=== PATIENT | male | born 1970 | race Two or more races ===

== ENCOUNTER 2018-01-29 23:56 | Emergency (ER) | payer OTHER ==
[~2018-01-29] VITALS: Ht 182.9 cm; Wt 127.0 kg
[~2018-01-29 23:56] MED LIST: ANTIVERT25 M1 PO; AUGMENTIN 125-150 ML; MUCINEX600 MG; PREVACID30 MG
[2018-01-30] MEDS ORDERED: LOSARTAN-HCTZ1 EACH (00:17)
[2018-01-30] MEDS ORDERED: SYNTHROID75 MCG (00:18)
[2018-01-30] MEDS ORDERED: LIPITOR20 MG (00:19)
== END 2018-01-30 11:56 | disposition home or self-care (01) ==
LOC: ER 23:56
DX: K29.70 Gastritis, unspecified, without bleeding (principal)

== ENCOUNTER 2019-03-03 10:26 | Emergency (ER) | payer OTHER ==
[~2019-03-03] VITALS: Ht 182.9 cm; Wt 117.5 kg
[~2019-03-03 10:26] MED LIST changes: +LIPITOR20 MG; +LOSARTAN-HCTZ1 EACH; +SYNTHROID75 MCG
[2019-03-03] MEDS ORDERED: OMEPRAZOLE40 MG (10:54)
== END 2019-03-03 19:37 | disposition home or self-care (01) ==
LOC: ER 10:26 → CPU-OBS 11:02 → ER 11:02
DX: R07.89 Other chest pain (principal)
CPT/HCPCS: G0378; G0379; 93005

== ENCOUNTER 2019-05-26 11:15 | Outpatient (CLI) | payer OTHER ==
[~2019-05-26 11:15] MED LIST changes: +OMEPRAZOLE40 MG
== END 2019-05-26 11:19 | disposition home or self-care (01) ==
LOC: MRI 11:15
DX: M79.672 Pain in left foot (principal)
CPT/HCPCS: 73720

== ENCOUNTER 2019-06-12 01:42 | Emergency (ER) | payer OTHER ==
[~2019-06-12] VITALS: Ht 182.9 cm; Wt 115.7 kg
== END 2019-06-12 07:35 ==
LOC: ER 01:42 → CPU-OBS 01:43 → ER 07:35
DX: R07.89 Other chest pain (principal)
CPT/HCPCS: 93005; G0378; G0379

== ENCOUNTER 2019-08-20 00:13 | Emergency (ER) | payer OTHER ==
[~2019-08-20] VITALS: Ht 182.9 cm; Wt 113.4 kg
[2019-08-20] MEDS ORDERED: TUSNEL LIQUID178 ML PO (02:20)
[2019-08-20] MEDS ORDERED: OSEL75CA PO (02:20)
[2019-08-20] MEDS ORDERED: DOLOGEN CAPLET1 EACH PO (02:20)
== END 2019-08-20 02:31 | disposition home or self-care (01) ==
LOC: ER 00:13
DX: B33.8 Other specified viral diseases (principal); J11.1 Influenza due to unidentified influenza virus with other respiratory manifestations

== ENCOUNTER 2020-01-19 10:23 | Outpatient (CLI) | payer OTHER ==
[~2020-01-19 10:23] MED LIST changes: +DOLOGEN CAPLET1 EACH PO; +OSEL75CA PO; +TUSNEL LIQUID178 ML PO
== END 2020-01-19 10:30 | disposition home or self-care (01) ==
LOC: TOM 10:23
DX: M95.0 Acquired deformity of nose (principal)

== ENCOUNTER 2020-09-16 04:45 | Emergency (ER) | payer OTHER ==
[~2020-09-16] VITALS: Ht 182.9 cm; Wt 124.7 kg
== END 2020-09-16 11:15 | disposition home or self-care (01) ==
LOC: ER 04:45 → CPU-OBS 04:47 → ER 04:47
DX: R07.89 Other chest pain (principal); R00.2 Palpitations
CPT/HCPCS: G0378; G0379; 93005

== ENCOUNTER 2020-10-02 19:48 | Emergency (ER) | payer OTHER ==
[~2020-10-02] VITALS: Ht 182.9 cm; Wt 124.3 kg
[2020-10-03] MEDS ORDERED: MUCINEX DM ER1 EAC1 PO (00:30)
[2020-10-03] MEDS ORDERED: ZYRTEC10 MG PO (00:30)
== END 2020-10-03 00:52 | disposition home or self-care (01) ==
LOC: ER 19:48
DX: J06.9 Acute upper respiratory infection, unspecified (principal); B34.9 Viral infection, unspecified

== ENCOUNTER → 2020-12-18 | Outpatient (CLI) | payer OTHER ==
[~2020-12-18] MED LIST changes: +MUCINEX DM ER1 EAC1 PO; +ZYRTEC10 MG PO
== END | disposition home or self-care (01) ==
LOC: TOM 12-17 13:15 → EDBD 13:42 → TOM 13:42
DX: J32.4 Chronic pansinusitis (principal)

== ENCOUNTER → 2020-12-31 09:20 | Outpatient (CLI) | payer OTHER | END | disposition home or self-care (01) | LOC: EDBD 09:20 → RAD 09:20 | DX: Z01.811 Encounter for preprocedural respiratory examination (principal) ==

== ENCOUNTER → 2020-12-31 10:24 | Outpatient (CLI) | payer OTHER | END | disposition home or self-care (01) | LOC: EKG 10:24 → EDBD 10:24 | PROVIDERS: ATTEND General Practice | DX: Z01.810 Encounter for preprocedural cardiovascular examination (principal) ==

== ENCOUNTER 2021-02-18 09:08 | Outpatient (CLI) | payer OTHER | END 2021-02-18 09:25 | disposition home or self-care (01) | LOC: SONOGRAMA 09:08 → MAMO-SONO 09:30 | PROVIDERS: ATTEND Internal Medicine Gastroenterology | DX: K76.0 Fatty (change of) liver, not elsewhere classified (principal); R10.13 Epigastric pain ==

== ENCOUNTER → 2021-06-09 | Emergency (ER) | payer OTHER ==
[~2021-06-09] VITALS: Ht 182.9 cm; Wt 127.0 kg
== END | disposition left against medical advice (07) ==
LOC: ER 17:54
DX: Z53.21 Procedure and treatment not carried out due to patient leaving prior to being seen by health care provider (principal)

== ENCOUNTER 2022-02-27 08:21 | Emergency (ER) | payer OTHER ==
[~2022-02-27] VITALS: Ht 182.9 cm; Wt 137.0 kg
== END 2022-02-27 12:58 | disposition home or self-care (01) ==
LOC: ER 08:21
DX: R07.89 Other chest pain (principal); R20.0 Anesthesia of skin; Z20.822 Contact with and (suspected) exposure to COVID-19; I10 Essential (primary) hypertension; E78.00 Pure hypercholesterolemia, unspecified; E78.1 Pure hyperglyceridemia; E03.9 Hypothyroidism, unspecified; E66.09 Other obesity due to excess calories

== ENCOUNTER 2022-10-21 14:37 | Outpatient (CLI) | payer OTHER | END 2022-10-21 14:47 | disposition home or self-care (01) | LOC: RAD 14:37 | PROVIDERS: ATTEND General Practice | DX: R06.00 Dyspnea, unspecified (principal); F17.210 Nicotine dependence, cigarettes, uncomplicated; G47.33 Obstructive sleep apnea (adult) (pediatric); J44.9 Chronic obstructive pulmonary disease, unspecified ==

== ENCOUNTER 2023-01-08 20:19 | Emergency (ER) | payer OTHER ==
[~2023-01-08] VITALS: Ht 182.9 cm; Wt 145.1 kg
== END 2023-01-08 22:01 | disposition home or self-care (01) ==
LOC: ER 20:19
DX: J06.9 Acute upper respiratory infection, unspecified (principal)

== ENCOUNTER 2023-04-24 17:23 | Emergency (ER) | payer OTHER ==
[~2023-04-24] VITALS: Ht 182.9 cm; Wt 140.6 kg
[2023-04-24 21:36] LABS: HEMATOCRIT 44.1 % (39.0-48.0); HEMOGLOBIN 14.4 g/dL (13-16.00); MEAN CELL VOLUME 95.3 fL (80.0-100.00); MEAN CORPUSCULAR HEMOGLOBIN 31.2 pg (27.00-32.0); MEAN CORPUSCULAR HGB CONC 32.7 g/dl (32.0-36.0); PLATELET COUNT 219 K/uL (150-450); RED BLOOD COUNT 4.63 M/uL (4.00-6.00); RED CELL DISTRIBUTION WIDTH 14.2 % (11.5-14.5)
[2023-04-24 21:42] LABS: PH,URINE 5.5 (5.0-8.0); URINE APPEARANCE Clear; URINE BILIRRUBIN Negative (NEGATIVE); URINE BLOOD Negative; URINE COLOR Yellow; URINE GLUCOSE Negative (NEGATIVE); URINE LEUKOCYTE Negative; URINE NITRATE Negative; URINE PROTEIN Negative (NEGATIVE); URINE UROBILINOGEN 0.2 E.U./dl
[2023-04-24 21:46] LABS: URINE EPITHELIAL CELLS 1.8 uL (0.0-38.8)
[2023-04-24 21:51] LABS: URINE BACTERIA 3.7 uL (0.0-1933); URINE WBC 1.2 uL (0.0-23.2)
[2023-04-24 22:02] LABS: ALBUMIN 3.7 gm/dL (3.4-5.0); BILIRUBIN TOTAL 0.33 mg/dL (0.3-1.2); CALCIUM 9.8 mg/dL (8.5-10.1); GFR 78.47; GLOBULINA 4.2 G/DL (2.4-3.5); POTASSIUM 3.91 mEq/L (3.5-5.1); TOTAL PROTEIN 7.9 gm/dL (6.4-8.2)
[2023-04-24] MEDS ORDERED: INTESTINEX680 M1 PO (22:46)
[2023-04-24] MEDS ORDERED: ONDANSETRON HCL4 MG PO (22:46)
== END 2023-04-24 22:59 | disposition home or self-care (01) ==
LOC: ER 17:23
PROVIDERS: Nurse Practitioner Family
DX: R10.31 Right lower quadrant pain (principal); K76.0 Fatty (change of) liver, not elsewhere classified; I10 Essential (primary) hypertension; E03.9 Hypothyroidism, unspecified

== ENCOUNTER 2023-09-22 13:44 | Emergency (ER) | payer OTHER ==
[~2023-09-22] VITALS: Ht 182.9 cm; Wt 145.1 kg
[~2023-09-22 13:44] MED LIST changes: +INTESTINEX680 M1 PO; +ONDANSETRON HCL4 MG PO
[2023-09-22] MEDS ORDERED: SYNTHROID88 MCG PO (14:16)
[2023-09-22] MEDS ORDERED: FAMOTIDINE/PF 20 MG in 0.9 % SODIUM CHLORIDE 8 ML IV PUSH STA (14:39)
[2023-09-22] MEDS ORDERED: ONDANSETRON HCL 2 MG/ML VIAL IV ONE (14:45)
[2023-09-22] MEDS ORDERED: KETOROLAC TROMETHAMINE 30 MG VIAL IV ONE (14:45)
[2023-09-22 14:58] LABS: HEMATOCRIT 39.6 % (39.0-48.0); HEMOGLOBIN 13.3 g/dL (13-16.00); MEAN CORPUSCULAR HEMOGLOBIN 31.3 pg (27.00-32.0); MEAN CORPUSCULAR HGB CONC 33.7 g/dl (32.0-36.0); PLATELET COUNT 225 K/uL (150-450); RED BLOOD COUNT 4.26 M/uL (4.00-6.00); RED CELL DISTRIBUTION WIDTH 15.6 % (11.5-14.5)
[2023-09-22 15:20] LABS: PH,URINE 7.5 (5.0-8.0); URINE APPEARANCE Clear; URINE BILIRRUBIN Negative (NEGATIVE); URINE BLOOD Negative; URINE COLOR Yellow; URINE GLUCOSE Negative (NEGATIVE); URINE LEUKOCYTE Negative; URINE NITRATE Negative; URINE PROTEIN Negative (NEGATIVE)
[2023-09-22 15:20] LABS: ALBUMIN 3.7 gm/dL (3.4-5.0); BILIRUBIN TOTAL 0.26 mg/dL (0.3-1.2); CALCIUM 8.9 mg/dL (8.5-10.1); CREATININE SERUM 1.01 mg/dL (0.70-1.30); GFR 77.57; GLOBULINA 3.6 G/DL (2.4-3.5); POTASSIUM 4.58 mEq/L (3.5-5.1); TOTAL PROTEIN 7.3 gm/dL (6.4-8.2)
[2023-09-22 15:23] LABS: URINE EPITHELIAL CELLS 2.9 uL (0.0-38.8); URINE WBC 11.5 uL (0.0-23.2)
[2023-09-22] MEDS ORDERED: LEVSIN/SL0.125 MG SL (15:52)
[2023-09-22] MEDS ORDERED: PEPCID AC20 MG PO (15:52)
== END 2023-09-22 16:08 | disposition home or self-care (01) ==
LOC: ER 13:45
PROVIDERS: General Practice
DX: K29.70 Gastritis, unspecified, without bleeding (principal); R10.9 Unspecified abdominal pain; Z20.822 Contact with and (suspected) exposure to COVID-19; I10 Essential (primary) hypertension

== ENCOUNTER 2024-07-24 18:51 | Emergency (ER) | payer OTHER ==
[~2024-07-24] VITALS: Ht 180.3 cm; Wt 117.0 kg
[~2024-07-24 18:51] MED LIST changes: +ATORVASTATIN CA40 MG PO; +LEVSIN/SL0.125 MG SL; +PEPCID AC20 MG PO; +PHENAGIL TABLE1 EACH PO; +SYNTHROID88 MCG PO
[2024-07-24] MEDS ORDERED: COZAAR100 MG PO (20:27)
[2024-07-24] MEDS ORDERED: KETOROLAC TROMETHAMINE 60 MG VIAL IM ONE ×2 (20:45→20:48)
[2024-07-24] MEDS ORDERED: DEXAMETHASONE SODIUM PHOSPHATE 4 MG/ML VIAL IM ONE (20:45)
[2024-07-24] MEDS ORDERED: DEXAMETHASONE SODIUM PHOSPHATE 4 MG/ML VIAL ONE (20:48)
[2024-07-24 21:05] LABS: HEMATOCRIT 39.9 % (39.0-48.0); HEMOGLOBIN 13.4 g/dL (13-16.00); MEAN CORPUSCULAR HEMOGLOBIN 32.3 pg (27.00-32.0); MEAN CORPUSCULAR HGB CONC 33.6 g/dl (32.0-36.0); PLATELET COUNT 231 K/uL (150-450); RED BLOOD COUNT 4.16 M/uL (4.00-6.00); RED CELL DISTRIBUTION WIDTH 14.4 % (11.5-14.5)
[2024-07-24 21:25] LABS: PH,URINE 7.5 (5.0-8.0); URINE APPEARANCE Cloudy; URINE BILIRRUBIN Negative (NEGATIVE); URINE BLOOD Negative; URINE COLOR Yellow; URINE GLUCOSE Negative (NEGATIVE); URINE KETONE Negative (NEGATIVE); URINE LEUKOCYTE Trace; URINE NITRATE Negative; URINE PROTEIN Negative (NEGATIVE)
[2024-07-24 21:29] LABS: URINE EPITHELIAL CELLS 4.8 uL (0.0-38.8); URINE RBC 4.4 uL (0.0-20.8); URINE WBC 7.8 uL (0.0-23.2)
[2024-07-24 21:35] LABS: ALBUMIN 3.7 gm/dL (3.4-5.0); BILIRUBIN TOTAL 0.28 mg/dL (0.3-1.2); CALCIUM 9.3 mg/dL (8.5-10.1); CREATININE SERUM 0.91 mg/dL (0.70-1.30); GFR 87.15; GLOBULINA 3.6 G/DL (2.4-3.5); POTASSIUM 4.14 mEq/L (3.5-5.1); TOTAL PROTEIN 7.3 gm/dL (6.4-8.2)
[2024-07-24 21:43] LABS: URINE BACTERIA 3.6 uL (0.0-1933)
[2024-07-24] MEDS ORDERED: DICLOFENAC SODI75 MG PO (22:51)
[2024-07-24] MEDS ORDERED: NASAL MIST126 ML NASAL (22:51)
== END 2024-07-24 22:59 | disposition home or self-care (01) ==
LOC: ER 18:53
PROVIDERS: General Practice
DX: R10.31 Right lower quadrant pain (principal); I10 Essential (primary) hypertension

== ENCOUNTER 2024-11-02 19:11 | Emergency (ER) | payer OTHER ==
[~2024-11-02] VITALS: Ht 177.8 cm; Wt 117.9 kg
[~2024-11-02 19:11] MED LIST changes: +COZAAR100 MG PO; +DICLOFENAC SODI75 MG PO; +NASAL MIST126 ML NASAL
[2024-11-02 19:26] VITALS: BP 132/90; O2SAT 100
[2024-11-02] MEDS ORDERED: FAMOTIDINE/PF 20 MG in 0.9 % SODIUM CHLORIDE 8 ML IV PUSH STA (20:06)
[2024-11-02] MEDS ORDERED: FAMOTIDINE/PF 20 MG/2 ML VIAL ONE (20:25)
[2024-11-02 21:17] LABS: BILIRUBIN TOTAL 0.42 mg/dL (0.3-1.2); CALCIUM 9.1 mg/dL (8.5-10.1); CREATININE SERUM 0.83 mg/dL (0.70-1.30); GFR 96.91; GLOBULINA 3.4 G/DL (2.4-3.5); POTASSIUM 3.87 mEq/L (3.5-5.1); TOTAL PROTEIN 7.4 gm/dL (6.4-8.2)
[2024-11-02 21:22] LABS: BASO % 0.6 % (0.1-1.2); EOS # 0.12 (0.04-0.54); EOS % 1.7 % (0.7-7.0); HEMATOCRIT 41.6 % (40.1-51.0); HEMOGLOBIN 13.9 g/dL (13.7-17.5); LYMPH # 1.36 (1.18-3.74); LYMPH % 19.5 % (19.3-53.1); MEAN CORPUSCULAR HEMOGLOBIN 31.4 pg (25.6-32.2); MONO % 8.6 % (4.7-12.5); NEUT # 4.78 (1.56-6.13); NEUT % 68.7 % (34.0-71.1); PLATELET COUNT 204 K/uL (163-369); RED BLOOD COUNT 4.43 M/uL (4.63-6.08); RED CELL DISTRIBUTION WIDTH 13.3 % (11.6-14.4)
== END 2024-11-02 22:02 | disposition home or self-care (01) ==
LOC: ER 19:11
PROVIDERS: General Practice
DX: R07.89 Other chest pain (principal); I10 Essential (primary) hypertension

== ENCOUNTER 2025-04-25 12:23 | Outpatient (CLI) | payer OTHER | END 2025-04-25 12:25 | disposition home or self-care (01) | LOC: MRI 12:23 | PROVIDERS: ATTEND Orthopaedic Surgery | DX: M75.112 Incomplete rotator cuff tear or rupture of left shoulder, not specified as traumatic (principal) | CPT/HCPCS: 73221 ==